=== PATIENT | female | born 1940 | race Two or more races ===

== ENCOUNTER 2018-04-09 06:58 | Outpatient (CLI) | payer OTHER | END 2018-04-09 07:38 | disposition home or self-care (01) | LOC: LAB 06:58 | DX: E11.65 Type 2 diabetes mellitus with hyperglycemia (principal); E78.2 Mixed hyperlipidemia ==

== ENCOUNTER 2018-06-07 17:07 | Emergency (ER) | payer OTHER ==
[~2018-06-07] VITALS: Ht 157.5 cm; Wt 63.5 kg
[2018-06-07] MEDS ORDERED: OMEPRAZOLE10 MG (18:07)
== END 2018-06-07 20:55 | disposition home or self-care (01) ==
LOC: ER 17:07
DX: K52.89 Other specified noninfective gastroenteritis and colitis (principal)

== ENCOUNTER 2018-08-04 08:27 | Outpatient (CLI) | payer OTHER ==
[~2018-08-04 08:27] MED LIST: OMEPRAZOLE10 MG
== END 2018-08-04 08:42 | disposition home or self-care (01) ==
LOC: SONOGRAMA 08:27
DX: Z12.31 Encounter for screening mammogram for malignant neoplasm of breast (principal); Z87.898 Personal history of other specified conditions; Z12.39 Encounter for other screening for malignant neoplasm of breast

== ENCOUNTER 2019-01-27 09:02 | Outpatient (CLI) | payer OTHER | END 2019-01-27 09:10 | disposition home or self-care (01) | LOC: LAB 09:02 | DX: E11.65 Type 2 diabetes mellitus with hyperglycemia (principal); Z12.11 Encounter for screening for malignant neoplasm of colon; N39.0 Urinary tract infection, site not specified; E11.21 Type 2 diabetes mellitus with diabetic nephropathy; D64.89 Other specified anemias; E03.8 Other specified hypothyroidism; E78.2 Mixed hyperlipidemia; J45.998 Other asthma ==

== ENCOUNTER 2019-01-28 15:53 | Outpatient (CLI) | payer OTHER | END 2019-01-28 15:56 | disposition home or self-care (01) | LOC: LAB 15:53 | DX: E11.65 Type 2 diabetes mellitus with hyperglycemia (principal); Z12.11 Encounter for screening for malignant neoplasm of colon; N39.0 Urinary tract infection, site not specified; E11.21 Type 2 diabetes mellitus with diabetic nephropathy; D64.89 Other specified anemias; E03.9 Hypothyroidism, unspecified; E78.49 Other hyperlipidemia ==

== ENCOUNTER 2020-06-25 07:27 | Outpatient (CLI) | payer OTHER | END 2020-06-25 07:35 | disposition home or self-care (01) | LOC: LAB 07:27 | PROVIDERS: ATTEND Specialist | DX: E11.21 Type 2 diabetes mellitus with diabetic nephropathy (principal); E78.2 Mixed hyperlipidemia; E03.8 Other specified hypothyroidism; D64.89 Other specified anemias; Z12.11 Encounter for screening for malignant neoplasm of colon; E11.65 Type 2 diabetes mellitus with hyperglycemia ==

== ENCOUNTER 2021-01-19 07:48 | Outpatient (CLI) | payer OTHER | END 2021-01-19 07:52 | disposition home or self-care (01) | LOC: LAB 07:48 | PROVIDERS: ATTEND Specialist | DX: E03.8 Other specified hypothyroidism (principal); E78.2 Mixed hyperlipidemia; D64.89 Other specified anemias; E11.65 Type 2 diabetes mellitus with hyperglycemia; E11.21 Type 2 diabetes mellitus with diabetic nephropathy; D68.8 Other specified coagulation defects ==

== ENCOUNTER 2021-04-15 07:25 | Outpatient (CLI) | payer OTHER | END 2021-04-15 07:30 | disposition home or self-care (01) | LOC: LAB 07:25 | PROVIDERS: ATTEND Specialist | DX: N25.81 Secondary hyperparathyroidism of renal origin (principal); Z12.11 Encounter for screening for malignant neoplasm of colon; E11.610 Type 2 diabetes mellitus with diabetic neuropathic arthropathy ==

== ENCOUNTER 2021-04-16 07:31 | Outpatient (CLI) | payer OTHER | END 2021-04-16 07:35 | disposition home or self-care (01) | LOC: LAB 07:31 | PROVIDERS: ATTEND Specialist | DX: N25.81 Secondary hyperparathyroidism of renal origin (principal); Z12.11 Encounter for screening for malignant neoplasm of colon; E11.610 Type 2 diabetes mellitus with diabetic neuropathic arthropathy ==

== ENCOUNTER 2021-05-15 07:28 | Outpatient (CLI) | payer OTHER | END 2021-05-15 13:42 | disposition home or self-care (01) | LOC: RAD 07:28 → LAB 07:28 | PROVIDERS: ATTEND Specialist | DX: E11.65 Type 2 diabetes mellitus with hyperglycemia (principal); D64.89 Other specified anemias; J45.998 Other asthma ==

== ENCOUNTER 2022-02-12 08:12 | Outpatient (CLI) | payer OTHER | END 2022-02-12 08:23 | disposition home or self-care (01) | LOC: LAB 08:12 | PROVIDERS: ATTEND Specialist | DX: E03.9 Hypothyroidism, unspecified (principal); E11.21 Type 2 diabetes mellitus with diabetic nephropathy; N39.9 Disorder of urinary system, unspecified; E78.2 Mixed hyperlipidemia; E11.65 Type 2 diabetes mellitus with hyperglycemia; Z12.11 Encounter for screening for malignant neoplasm of colon; D64.9 Anemia, unspecified; N25.81 Secondary hyperparathyroidism of renal origin; J45.998 Other asthma ==

== ENCOUNTER 2022-05-06 19:57 | Emergency (ER) | payer OTHER ==
[~2022-05-06] VITALS: Ht 157.5 cm; Wt 63.5 kg
== END 2022-05-06 22:10 | disposition home or self-care (01) ==
LOC: ER 19:57
DX: R10.9 Unspecified abdominal pain (principal); K21.9 Gastro-esophageal reflux disease without esophagitis

== ENCOUNTER 2022-08-20 11:12 | Emergency (ER) | payer OTHER ==
[~2022-08-20] VITALS: Ht 170.2 cm; Wt 76.2 kg
== END 2022-08-20 19:48 | disposition home or self-care (01) ==
LOC: ER 11:12
DX: R55 Syncope and collapse (principal); E11.9 Type 2 diabetes mellitus without complications; I10 Essential (primary) hypertension

== ENCOUNTER 2022-08-29 08:01 | Outpatient (CLI) | payer OTHER | END 2022-08-29 08:02 | disposition home or self-care (01) | LOC: LAB 08:01 | PROVIDERS: ATTEND Specialist | DX: E11.69 Type 2 diabetes mellitus with other specified complication (principal); N39.9 Disorder of urinary system, unspecified; Z13.220 Encounter for screening for lipoid disorders; D64.89 Other specified anemias; E11.21 Type 2 diabetes mellitus with diabetic nephropathy; E03.8 Other specified hypothyroidism ==

== ENCOUNTER → 2022-12-18 09:07 | Outpatient (CLI) | payer OTHER | END | disposition home or self-care (01) | LOC: LAB 09:07 | PROVIDERS: ATTEND Specialist | DX: N39.9 Disorder of urinary system, unspecified (principal); D64.89 Other specified anemias; E11.69 Type 2 diabetes mellitus with other specified complication; E11.21 Type 2 diabetes mellitus with diabetic nephropathy; N25.81 Secondary hyperparathyroidism of renal origin; Z13.220 Encounter for screening for lipoid disorders ==

== ENCOUNTER 2023-03-02 07:53 | Outpatient (CLI) | payer OTHER | END 2023-03-02 08:05 | disposition home or self-care (01) | LOC: LAB 07:53 | PROVIDERS: ATTEND Specialist | DX: E03.8 Other specified hypothyroidism (principal); Z13.220 Encounter for screening for lipoid disorders; N39.9 Disorder of urinary system, unspecified; D64.89 Other specified anemias; R19.5 Other fecal abnormalities; E11.21 Type 2 diabetes mellitus with diabetic nephropathy; R07.89 Other chest pain; E11.69 Type 2 diabetes mellitus with other specified complication; I11.9 Hypertensive heart disease without heart failure; E28.1 Androgen excess ==

== ENCOUNTER 2023-03-02 08:43 | Outpatient (CLI) | payer OTHER | END 2023-03-02 08:45 | disposition home or self-care (01) | LOC: RAD 08:43 | PROVIDERS: ATTEND Specialist | DX: I70.0 Atherosclerosis of aorta (principal) ==

== ENCOUNTER → 2023-09-28 07:48 | Outpatient (CLI) | payer OTHER ==
[2023-09-28 08:56] LABS: HEMATOCRIT 37.2 % (36.0-45.00); HEMOGLOBIN 12.7 g/dL (12.0-15.00); MEAN CELL VOLUME 86.7 fL (80.00-100.00); MEAN CORPUSCULAR HEMOGLOBIN 29.5 pg (27.00-32.0); MEAN CORPUSCULAR HGB CONC 34.1 g/dl (32.0-36.0); PLATELET COUNT 201 K/uL (150-450); RED BLOOD COUNT 4.29 M/uL (4.00-6.00); RED CELL DISTRIBUTION WIDTH 14.2 % (11.5-14.5); URINE APPEARANCE Clear; URINE BACTERIA 35.2 uL (0.0-1933); URINE BILIRRUBIN Negative (NEGATIVE); URINE BLOOD Negative; URINE COLOR Yellow; URINE EPITHELIAL CELLS 3.3 uL (0.0-38.8); URINE GLUCOSE Negative (NEGATIVE); URINE LEUKOCYTE Small; URINE NITRATE Negative; URINE PROTEIN Negative (NEGATIVE); URINE WBC 36.1 uL (0.0-23.2)
[2023-09-28 09:49] LABS: ALBUMIN 3.6 gm/dL (3.4-5.0); BILIRUBIN TOTAL 1.23 mg/dL (0.3-1.2); BILIRUBIN,CONJUGATED 0.28 mg/dL (0.0-0.2); BILIRUBIN,UNCONJUGATED 0.95 mg/dL (0.0-0.6); CALCIUM 9.5 mg/dL (8.5-10.1); CREATININE SERUM 0.8 mg/dL (0.55-1.02); GFR 68.17; GLOBULINA 3.2 G/DL (2.4-3.5); POTASSIUM 3.66 mEq/L (3.5-5.1); TOTAL PROTEIN 6.8 gm/dL (6.4-8.2); TSH 1.6 uIU/mL (0.358-3.74)
== END | disposition home or self-care (01) ==
LOC: LAB 07:48
PROVIDERS: ATTEND Specialist
DX: E03.9 Hypothyroidism, unspecified (principal); N39.9 Disorder of urinary system, unspecified; E78.2 Mixed hyperlipidemia; E11.65 Type 2 diabetes mellitus with hyperglycemia; D64.9 Anemia, unspecified; K75.81 Nonalcoholic steatohepatitis (NASH); K76.9 Liver disease, unspecified

== ENCOUNTER 2023-09-29 08:04 | Outpatient (CLI) | payer OTHER ==
[2023-09-29 09:43] LABS: URINE PROT QUANT 24HR 9.6 MG/DL
[2023-09-29 10:06] LABS: CREATINE CLEARANCE 73.2 ML/MIN (97-137); CREATININE SERUM 0.79 mg/dL (0.6-1.0)
[2023-09-29 10:07] LABS: URINE PROT QUANT 24 HR 98.4 MG/24HR (42-225)
== END 2023-09-29 08:06 | disposition home or self-care (01) ==
LOC: LAB 08:04
PROVIDERS: ATTEND Specialist
DX: N39.9 Disorder of urinary system, unspecified (principal); E78.2 Mixed hyperlipidemia; E11.65 Type 2 diabetes mellitus with hyperglycemia; D64.9 Anemia, unspecified; E11.21 Type 2 diabetes mellitus with diabetic nephropathy; K76.9 Liver disease, unspecified; K75.81 Nonalcoholic steatohepatitis (NASH)

== ENCOUNTER 2023-10-01 11:58 | Outpatient (CLI) | payer OTHER | END 2023-10-01 12:15 | disposition home or self-care (01) | LOC: RAD 11:58 | PROVIDERS: ATTEND Internal Medicine Cardiovascular Disease | DX: S52.90XA Unspecified fracture of unspecified forearm, initial encounter for closed fracture (principal); S62.109A Fracture of unspecified carpal bone, unspecified wrist, initial encounter for closed fracture ==

== ENCOUNTER → 2023-12-31 08:22 | Outpatient (CLI) | payer OTHER ==
[2023-12-31 09:03] LABS: HEMATOCRIT 39.3 % (36.0-45.00); HEMOGLOBIN 13.3 g/dL (12.0-15.00); MEAN CELL VOLUME 88.5 fL (80.00-100.00); MEAN CORPUSCULAR HGB CONC 33.9 g/dl (32.0-36.0); PLATELET COUNT 185 K/uL (150-450); RED BLOOD COUNT 4.44 M/uL (4.00-6.00); RED CELL DISTRIBUTION WIDTH 14.2 % (11.5-14.5)
[2023-12-31 09:23] LABS: PH,URINE 7.5 (5.0-8.0); URINE APPEARANCE Clear; URINE BILIRRUBIN Negative (NEGATIVE); URINE BLOOD Negative; URINE COLOR Yellow; URINE GLUCOSE Negative (NEGATIVE); URINE LEUKOCYTE Trace; URINE NITRATE Negative; URINE PROTEIN Negative (NEGATIVE)
[2023-12-31 09:27] LABS: URINE BACTERIA 11.3 uL (0.0-1933); URINE EPITHELIAL CELLS 2.4 uL (0.0-38.8); URINE RBC 4.4 uL (0.0-20.8); URINE WBC 4.4 uL (0.0-23.2)
[2023-12-31 09:48] LABS: CREATININE URINE RANDOM 82.7 MG/DL (30-125)
[2023-12-31 09:55] LABS: ALBUMIN 3.9 gm/dL (3.4-5.0); BILIRUBIN TOTAL 1.38 mg/dL (0.3-1.2); BILIRUBIN,CONJUGATED 0.27 mg/dL (0.0-0.2); BILIRUBIN,UNCONJUGATED 1.11 mg/dL (0.0-0.6); CALCIUM 9.9 mg/dL (8.5-10.1); CHOL HDL RATIO 2.7 (0-5.0); CREATININE SERUM 0.83 mg/dL (0.55-1.02); FREE TRIODOTIRONINE 2.28 pg/ml (2.18-3.98); GFR 65.34; GLOBULINA 2.8 G/DL (2.4-3.5); POTASSIUM 4.26 mEq/L (3.5-5.1); T4 FREE 1.08 NG/ML (0.76-1.46); TOTAL PROTEIN 6.7 gm/dL (6.4-8.2); TSH 1.57 uIU/mL (0.358-3.74)
[2023-12-31 10:01] LABS: INR 1.07; PARTIAL THROMBOPLASTIN TIME 27.9 SECONDS (22.0-34.0); PROTHROMBIN TIME 11.2 SECONDS (9.0-11.5)
== END | disposition home or self-care (01) ==
LOC: LAB 08:22
PROVIDERS: ATTEND Specialist
DX: E03.9 Hypothyroidism, unspecified (principal); N39.9 Disorder of urinary system, unspecified; E78.2 Mixed hyperlipidemia; E11.65 Type 2 diabetes mellitus with hyperglycemia; D64.9 Anemia, unspecified; D68.8 Other specified coagulation defects; K75.81 Nonalcoholic steatohepatitis (NASH); N25.81 Secondary hyperparathyroidism of renal origin; N39.0 Urinary tract infection, site not specified

== ENCOUNTER 2024-09-29 08:52 | Outpatient (CLI) | payer OTHER ==
[2024-09-29 09:55] LABS: HEMOGLOBIN 13.2 g/dL (12.0-15.00); MEAN CELL VOLUME 87.4 fL (80.00-100.00); MEAN CORPUSCULAR HEMOGLOBIN 30.4 pg (27.00-32.0); MEAN CORPUSCULAR HGB CONC 34.8 g/dl (32.0-36.0); PLATELET COUNT 197 K/uL (150-450); RED BLOOD COUNT 4.34 M/uL (4.00-6.00); RED CELL DISTRIBUTION WIDTH 14.9 % (11.5-14.5)
[2024-09-29 10:07] LABS: ERYTHROCYTE SEDIMENTATION RATE 19 mm/hr
[2024-09-29 11:12] LABS: URINE APPEARANCE Clear; URINE BILIRRUBIN Negative (NEGATIVE); URINE BLOOD Negative; URINE COLOR Yellow; URINE GLUCOSE Negative (NEGATIVE); URINE KETONE Negative (NEGATIVE); URINE LEUKOCYTE Large; URINE NITRATE Negative; URINE PROTEIN Negative (NEGATIVE)
[2024-09-29 11:12] LABS: ALBUMIN 3.8 gm/dL (3.4-5.0); ALKALINE PHOSPHATASE 56 U/L (50-136); ALT/SGPT 21 U/L (12-78); ANION GAP 7 (10.0-20.0); AST/SGOT 17 U/L (15-37); BILIRUBIN TOTAL 1.14 mg/dL (0.3-1.2); BLOOD UREA NITROGEN 21 mg/dL (7-18); BUN CREA RATIO 24 (7.0-25.0); C-REACTIVE PROTEIN < 0.29 MG/DL (0.00-0.29); CALCIUM 9.6 mg/dL (8.5-10.1); CARBON DIOXIDE 31 mEq/L (21-32); CHLORIDE 109 mmol/L (98-107); CHOL HDL RATIO 2.7 (0-5.0); CHOLESTEROL 167 mg/dL (0-200); CREATININE SERUM 0.86 mg/dL (0.55-1.02); GFR 62.56; GLOBULINA 2.7 G/DL (2.4-3.5); GLUCOSE FASTING 116 mg/dL (65-100); HDL 61 mg/dl (40-60); LDL 84 mg/dl (0-130); OSMOLALITY SERUM 289 MOSM/KG (275-295); PHOSPHOROUS 2.9 mg/dL (2.5-4.9); POTASSIUM 4.03 mEq/L (3.5-5.1); SODIUM 143 mmol/L (136-145); T4 FREE 1.06 NG/ML (0.76-1.46); TOTAL PROTEIN 6.5 gm/dL (6.4-8.2); TRIGLYCERIDES 112 mg/dL (0-150); VLDL 22 (0-39)
[2024-09-29 11:13] LABS: URINE BACTERIA 62.9 uL (0.0-1933); URINE EPITHELIAL CELLS 10.3 uL (0.0-38.8); URINE WBC 118.1 uL (0.0-23.2)
[2024-09-29 11:16] LABS: URINE CAST 0.15 uL (0.0-1.40)
[2024-09-29 18:40] LABS: URIC ACID 5.5 mg/dL (2.5-7.5)
== END 2024-09-29 08:53 | disposition home or self-care (01) ==
LOC: LAB 08:52
PROVIDERS: ATTEND Specialist
DX: M00.80 Arthritis due to other bacteria, unspecified joint (principal); N25.81 Secondary hyperparathyroidism of renal origin; E55.9 Vitamin D deficiency, unspecified

== ENCOUNTER → 2024-12-01 08:41 | Outpatient (CLI) | payer OTHER ==
[2024-12-01 09:37] LABS: HEMATOCRIT 36.7 % (36.0-45.00); HEMOGLOBIN 12.7 g/dL (12.0-15.00); MEAN CELL VOLUME 87.4 fL (80.00-100.00); MEAN CORPUSCULAR HEMOGLOBIN 30.3 pg (27.00-32.0); MEAN CORPUSCULAR HGB CONC 34.6 g/dl (32.0-36.0); PLATELET COUNT 177 K/uL (150-450); RED BLOOD COUNT 4.19 M/uL (4.00-6.00); RED CELL DISTRIBUTION WIDTH 14.6 % (11.5-14.5)
[2024-12-01 10:02] LABS: PH,URINE 6.5 (5.0-8.0); URINE APPEARANCE Clear; URINE BILIRRUBIN Negative (NEGATIVE); URINE BLOOD Negative; URINE COLOR Yellow; URINE GLUCOSE Negative (NEGATIVE); URINE KETONE Negative (NEGATIVE); URINE LEUKOCYTE Small; URINE NITRATE Negative; URINE PROTEIN Negative (NEGATIVE)
[2024-12-01 10:05] LABS: URINE BACTERIA 30.5 uL (0.0-1933); URINE EPITHELIAL CELLS 5.8 uL (0.0-38.8); URINE RBC 4.2 uL (0.0-20.8); URINE WBC 39.8 uL (0.0-23.2)
[2024-12-01 10:07] LABS: URINE CAST 0.14 uL (0.0-1.40)
[2024-12-01 10:16] LABS: CREATININE URINE RANDOM 79.4 MG/DL (30-125)
[2024-12-01 10:52] LABS: ALBUMIN 3.6 gm/dL (3.4-5.0); BILIRUBIN TOTAL 1.14 mg/dL (0.3-1.2); CALCIUM 9.3 mg/dL (8.5-10.1); CHOL HDL RATIO 2.6 (0-5.0); CREATININE SERUM 0.73 mg/dL (0.55-1.02); FREE TRIODOTIRONINE 2.31 pg/ml (2.18-3.98); GFR 75.59; GLOBULINA 2.8 G/DL (2.4-3.5); POTASSIUM 4.2 mEq/L (3.5-5.1); T4 FREE 1.06 NG/ML (0.76-1.46); TOTAL PROTEIN 6.4 gm/dL (6.4-8.2); TSH 1.2 uIU/mL (0.358-3.74)
== END | disposition home or self-care (01) ==
LOC: LAB 08:41
PROVIDERS: ATTEND Specialist
DX: E03.9 Hypothyroidism, unspecified (principal); E11.21 Type 2 diabetes mellitus with diabetic nephropathy; N39.9 Disorder of urinary system, unspecified; E78.2 Mixed hyperlipidemia; E11.65 Type 2 diabetes mellitus with hyperglycemia; D64.9 Anemia, unspecified; N39.0 Urinary tract infection, site not specified

== ENCOUNTER 2025-08-28 07:12 | Outpatient (CLI) | payer OTHER ==
[2025-08-28 08:04] LABS: BASO % 1.0 % (0.1-1.2); EOS # 0.23 (0.04-0.54); EOS % 3.0 % (0.7-7.0); LYMPH # 2.26 (1.18-3.74); LYMPH % 29.2 % (19.3-53.1); MEAN PLATELET VOLUME 11.00 fl (9.4-12.4); MONO # 0.55 (0.24-0.82); MONO % 7.1 % (4.7-12.5); NEUT # 4.59 (1.56-6.13); NEUT % 59.3 % (34.0-71.1); RED CELL DISTRIBUTION WIDTH 13.8 % (11.6-14.4)
[2025-08-28 08:31] LABS: URINE APPEARANCE Clear; URINE BILIRRUBIN Negative (NEGATIVE); URINE BLOOD Negative; URINE COLOR Yellow; URINE GLUCOSE Negative (NEGATIVE); URINE KETONE Negative (NEGATIVE); URINE LEUKOCYTE Moderate; URINE NITRATE Negative; URINE PROTEIN Negative (NEGATIVE); URINE UROBILINOGEN 1.0 E.U./dl
[2025-08-28 08:34] LABS: URINE BACTERIA 10.7 uL (0.0-1933); URINE EPITHELIAL CELLS 4.3 uL (0.0-38.8); URINE RBC 4.6 uL (0.0-20.8); URINE WBC 56.4 uL (0.0-23.2)
[2025-08-28 08:37] LABS: URINE CAST 0.43 uL (0.0-1.40)
[2025-08-28 08:49] LABS: INR 0.99
[2025-08-28 08:58] LABS: ALT/SGPT 22.0 U/L (12-78); AST/SGOT 13.0 U/L (15-37); BILIRUBIN TOTAL 1.31 mg/dL (0.3-1.2); BUN CREA RATIO 19.0 (7.0-25.0); CREATININE SERUM 0.84 mg/dL (0.55-1.02); GFR 64.13; GLOBULINA 2.6 G/DL (2.4-3.5); GLUCOSE FASTING 103.0 mg/dL (65-100); OSMOLALITY SERUM 286.0 MOSM/KG (275-295)
== END 2025-08-28 07:20 | disposition home or self-care (01) ==
LOC: LAB 07:12
DX: E78.5 Hyperlipidemia, unspecified (principal); I10 Essential (primary) hypertension; R39.198 Other difficulties with micturition; D68.8 Other specified coagulation defects; H53.9 Unspecified visual disturbance

== ENCOUNTER → 2025-09-29 08:37 | Outpatient (CLI) | payer OTHER ==
[2025-09-29 09:33] LABS: BASO % 0.7 % (0.1-1.2); EOS # 0.38 (0.04-0.54); EOS % 5.3 % (0.7-7.0); LYMPH # 1.64 (1.18-3.74); LYMPH % 22.7 % (19.3-53.1); MEAN PLATELET VOLUME 10.50 fl (9.4-12.4); MONO # 0.72 (0.24-0.82); MONO % 10.0 % (4.7-12.5); NEUT # 4.43 (1.56-6.13); NEUT % 61.2 % (34.0-71.1); RED CELL DISTRIBUTION WIDTH 13.2 % (11.6-14.4)
[2025-09-29 11:09] LABS: ALT/SGPT 17.0 U/L (12-78); AST/SGOT 14.0 U/L (15-37); BILIRUBIN TOTAL 1.24 mg/dL (0.3-1.2); BUN CREA RATIO 25.0 (7.0-25.0); CHOL HDL RATIO 2.7 (0-5.0); CREATININE SERUM 0.97 mg/dL (0.55-1.02); GFR 54.32; GLOBULINA 3.0 G/DL (2.4-3.5); GLUCOSE FASTING 114.0 mg/dL (65-100); HDL 55.0 mg/dl (40-60); LDL 71.0 mg/dl (0-130); OSMOLALITY SERUM 294.0 MOSM/KG (275-295); TSH 1.67 uIU/mL (0.358-3.74); VLDL 23.0 (0-39)
[2025-09-29 13:10] LABS: URINE APPEARANCE Clear; URINE BILIRRUBIN Negative (NEGATIVE); URINE BLOOD Negative; URINE COLOR Yellow; URINE GLUCOSE Negative (NEGATIVE); URINE KETONE Trace (NEGATIVE); URINE LEUKOCYTE Moderate; URINE NITRATE Negative; URINE PROTEIN Negative (NEGATIVE); URINE UROBILINOGEN 1.0 E.U./dl
[2025-09-29 13:16] LABS: URINE BACTERIA 16.7 uL (0.0-1933); URINE CAST 3.22 uL (0.0-1.40); URINE EPITHELIAL CELLS 19.0 uL (0.0-38.8); URINE RBC 2.1 uL (0.0-20.8); URINE WBC 67.6 uL (0.0-23.2)
[2025-09-29 13:27] LABS: CREATININE URINE RANDOM 107.0 MG/DL (30-125)
[2025-09-29 13:39] LABS: TYPE CELLS SQUAMOUS
[2025-09-29 13:40] LABS: URINE MUCUS SCANT
== END | disposition home or self-care (01) ==
LOC: LAB 08:37
PROVIDERS: ATTEND Specialist
DX: E03.9 Hypothyroidism, unspecified (principal); N39.9 Disorder of urinary system, unspecified; E78.2 Mixed hyperlipidemia; D64.9 Anemia, unspecified; E11.65 Type 2 diabetes mellitus with hyperglycemia; E11.21 Type 2 diabetes mellitus with diabetic nephropathy

== ENCOUNTER → 2025-10-04 11:09 | Outpatient (CLI) | payer OTHER ==
[2025-10-04 12:38] LABS: URINE APPEARANCE Clear; URINE BILIRRUBIN Negative (NEGATIVE); URINE BLOOD Negative; URINE GLUCOSE Negative (NEGATIVE); URINE KETONE Trace (NEGATIVE); URINE LEUKOCYTE Moderate; URINE NITRATE Negative; URINE PROTEIN Negative (NEGATIVE); URINE UROBILINOGEN 1.0 E.U./dl
[2025-10-04 12:39] LABS: URINE BACTERIA 79.1 uL (0.0-1933); URINE CAST 1.90 uL (0.0-1.40); URINE EPITHELIAL CELLS 26.3 uL (0.0-38.8); URINE RBC 2.9 uL (0.0-20.8); URINE WBC 72.4 uL (0.0-23.2)
[2025-10-04 13:00] LABS: URINE COLOR Yellow
[2025-10-04 13:01] LABS: TYPE CELLS SQUAMOUS
== END | disposition home or self-care (01) ==
LOC: LAB 11:09
PROVIDERS: ATTEND Specialist
DX: N39.0 Urinary tract infection, site not specified (principal); N39.9 Disorder of urinary system, unspecified

== ENCOUNTER 2025-10-04 13:49 | Outpatient (CLI) | payer OTHER | END 2025-10-04 14:11 | disposition home or self-care (01) | LOC: TOM 13:49 | PROVIDERS: ATTEND Specialist | DX: G23.8 Other specified degenerative diseases of basal ganglia (principal); S32.000A Wedge compression fracture of unspecified lumbar vertebra, initial encounter for closed fracture; X58.XXXA Exposure to other specified factors, initial encounter; Y93.9 Activity, unspecified; Y92.9 Unspecified place or not applicable; Y99.9 Unspecified external cause status ==